=== PATIENT | male | born 1980 | race Caucasian/White ===

== ENCOUNTER 2019-03-08 17:59 | Emergency (ER) | payer MEDICARE, MEDICAID, SELFPAY ==
[2019-03-08 18:04] VITALS: BP 139/92; PULSE 87; RESP 18; TEMP 37.5; O2SAT 97
--- NOTE | 2019-03-08 18:08 | W.ED.GENAD ---
Discharge Plan Disposition Patient Disposition: HOME Condition: Improving Discharge Details Chief Complaint: Cellulitis Clinical Impression: Cellulitis and abscess of upper arm and forearm Primary Care Provider: Terri,Local ED Provider: Dionne Cordova Home Meds and New Rx's Prescriptions: New cephalexin [Keflex] 500 mg capsule 500 mg PO BID Qty: 12 RF: 0 sulfamethoxazole-trimethoprim [Bactrim DS] 800-160 mg tablet 2 tab PO BID Qty: 24 RF: 0 Continued olanzapine [Zyprexa] 20 MG tablet 20 mg PO HS RF: 0 sertraline [Zoloft] 50 MG tablet 75 mg PO DAILY Qty: 14 RF: 0 dextroamphetamine-amphetamine [Adderall] 20 MG tablet 30 mg PO BID RF: 0 methadone 10 MG/ML concentrate 60 mg PO DAILY RF: 0 methylprednisolone 4 MG tablets,dose pack 4 mg PO DIRECTED Qty: 1 RF: 0 Discharge Instructions Instructions: Cephalexin (By mouth), Sulfamethoxazole/Trimethoprim (By mouth), Cellulitis (ED) Additional Instructions: Keep wound covered. This will continue to drain. Incision will close on its own. Please take antibiotics as prescribed, even if symptoms improve, please take the entire course. You will need follow-up within the next 48 hours. I have asked her critical care nurse help facilitate this, please call them tomorrow to discuss follow-up appointment. If you are not able to be seen by primary care provider next 48 hours please return to the emergency department for recheck. Elevate as much as possible over the next 2 days, at this arm rest. If you develop fever/chills, the redness starts to spread outside of the skin finds you develop other new/worsening symptoms please seek care urgently once again. Follow-up with the tennis coach as directed Discharge Data Discharge Date/Time-TO BE ENTERED AT DEPARTURE: 03/08/19 19:57 Medical Decision Making Patient is a [id number] 39-year-old male presenting today with chief complaint of abscess to the ulnar side of the right forearm. He reports that over week ago he injected cocaine into the area. States that he noted abscess shortly thereafter. States that he was awaiting for this to drain itself did not seek treatment. Denies any fevers or chills. Reports that he attempted to open this last night and that since then the erythema has spread quite rapidly. On exam, he has a 3 cm raised, fluctuant area that is crusted over 4 central area of abscess. Erythema then spreads to the elbow and wrist. Is not completely circumferential. The area around the abscess is quite indurated. Patient appears nontoxic. Plan to I&D, discussed this with the patient. Will place on Keflex and Bactrim, pending wound culture. Abscess was I&D. Thick purulent discharge was expressed. Loculations were broken up, abscess was irrigated. Wound culture was sent. Patient tolerated this well. Patient given first dose of Keflex and Bactrim while here. Advised he avoid work for the next 2 days and try to elevate the arm as much as possible. Patient does not have primary care, nor does he have a contact phone number. He will contact our critical care nurse tomorrow hoping to have a phone number to establish at that point. Patient is to be reassessed in the next 48 hours. If we are unable to establish him with a primary care and that time, he will return to the emergency department for wound evaluation. He was given strict return precautions. life skills coach did come and speak with the patient who is very interested in abstaining from drugs. Area of cellulitis was demarcated with marker. All of his questions and concerns were addressed and he is in agreement this plan. HPI General Mode of arrival: ambulatory. Date/Time Provider Initiated Documentation: 03/08/19 18:07. Limitations to Documentation: no limitations. Information obtained by: patient and RN notes reviewed. History of Present Illness 39 year old M presents to the emergency department with the chief complaint of Right forearm abscess, described as moderate, Quality is described as burning, and is localized to the right and upper extremity. Patient reports no radiation. Patient started experiencing this week(s) (1) and it has been constant. No relieving factors improve symptom(s), Other factors that worsen symptoms (After an attempt at opening last night) . Patient notes no other symptoms. and rash (Erythema surrounding); denies chest pain, cough, fever/chills, nausea/vomiting and shortness of breath. Patient did receive the following treatments prior to arrival, none Related Data Home Medications Medication Instructions Recorded Confirmed olanzapine [Zyprexa] 20 mg PO HS 03/04/16 06/03/17 sertraline [Zoloft] 75 mg PO DAILY #14 tablet 03/04/16 06/03/17 dextroamphetamine-amphetamine 30 mg PO BID 06/03/17 06/03/17 [Adderall] methadone 60 mg PO DAILY 06/03/17 06/03/17 methylprednisolone 4 mg PO DIRECTED #1 packet 06/03/17 cephalexin [Keflex] 500 mg PO BID #12 cap 03/08/19 sulfamethoxazole-trimethoprim 2 tab PO BID #24 tab 03/08/19 [Bactrim DS] Previous Rx's Medication Instructions Recorded sertraline [Zoloft] 75 mg PO DAILY #14 tablet 03/04/16 methylprednisolone 4 mg PO DIRECTED #1 packet 06/03/17 cephalexin [Keflex] 500 mg PO BID #12 cap 03/08/19 sulfamethoxazole-trimethoprim 2 tab PO BID #24 tab 03/08/19 [Bactrim DS] Allergies Allergy/AdvReac Type Severity Reaction Status Date / Time Penicillins AdvReac Intermediate Hives Unverified 06/03/17 19:32 Review of Systems Constitutional Reports as per HPI, Denies chills, Denies fever(s), Denies headache(s) and Denies weakness ENT Denies headache(s) Cardiovascular Reports as per HPI and Denies chest pain Respiratory Reports as per HPI and Denies cough Musculoskeletal Reports as per HPI, Denies deformity, Denies joint swelling, Denies limited range of motion, Denies muscle weakness, Denies numbness and Denies tingling Integumentary/Breasts Reports as per HPI, Reports erythema, Reports skin pain, Reports skin swelling and Reports sores Neurologic Reports as per HPI, Denies headache(s), Denies numbness, Denies tingling, Denies paresthesias and Denies weakness [facility] Social History Smoking/Tobacco Use Status: Current every day Alcohol Intake: never Drug use: Occasionally Substance use type: marijuana Details: States he is on methadone Do you feel safe in your relationship?: Yes Exam Const General: cooperative, healthy appearing, comfortable, no acute distress, well developed and well groomed Nutritional Appearance: average body habitus and well nourished Orientation: alert and awake Resp Effort & Inspection: normal respiratory effort, able to speak in complete sentences and no respiratory distress Cardio Rate: regular rate Rhythm: regular rhythm Skin General skin exam: crusts (centrally over abscess), no ecchymosis, erythema, fluctuance (centrally 3cm abscess) and induration (surrounding abscess) Full body images: 1. area of erythema 2. area of abscess Neuro General: alert and awake Cognition: normal cognition Speech: speech normal Gait: normal gait Motor: muscle tone normal throughout Sensory Exam: no sensory deficits noted Extrem General: full ROM, normal capillary refill and no joint enlargement Right upper extremity: full ROM, normal capillary refill and no joint enlargement; abnormal to inspection (skin changes as above) Psych Appearance: grossly normal and well kempt Mental Status: mental status grossly normal Speech and Movement: speech and movement normal Procedures Abscess I/D Site: Upper Extremity Side (if applicable): Right Sedation/analgesia: None Local Anesthetic: Lidocaine 1% Amount of anesthesia used (mL): 4 Technique: Other (15 blade) Amount of fluid expressed (mL): 5 Irrigation: Yes Packing used?: None
--- NOTE | 2019-03-08 18:25 | ED.GENADUL_ITS ---
Discharge Plan Disposition Patient Disposition: HOME Condition: Improving Discharge Details Chief Complaint: Cellulitis Clinical Impression: Cellulitis and abscess of upper arm and forearm Primary Care Provider: Terri,Local ED Provider: Dionne Cordova Home Meds and New Rx's Prescriptions: New cephalexin [Keflex] 500 mg capsule 500 mg PO BID Qty: 12 RF: 0 sulfamethoxazole-trimethoprim [Bactrim DS] 800-160 mg tablet 2 tab PO BID Qty: 24 RF: 0 Continued olanzapine [Zyprexa] 20 MG tablet 20 mg PO HS RF: 0 sertraline [Zoloft] 50 MG tablet 75 mg PO DAILY Qty: 14 RF: 0 dextroamphetamine-amphetamine [Adderall] 20 MG tablet 30 mg PO BID RF: 0 methadone 10 MG/ML concentrate 60 mg PO DAILY RF: 0 methylprednisolone 4 MG tablets,dose pack 4 mg PO DIRECTED Qty: 1 RF: 0 Discharge Instructions Instructions: Cephalexin (By mouth), Sulfamethoxazole/Trimethoprim (By mouth), Cellulitis (ED) Additional Instructions: Keep wound covered. This will continue to drain. Incision will close on its own. Please take antibiotics as prescribed, even if symptoms improve, please take the entire course. You will need follow-up within the next 48 hours. I have asked her post anesthesia care unit nurse help facilitate this, please call them tomorrow to discuss follow-up appointment. If you are not able to be seen by primary care provider next 48 hours please return to the emergency department for recheck. Elevate as much as possible over the next 2 days, at this arm rest. If you develop fever/chills, the redness starts to spread outside of the skin finds you develop other new/worsening symptoms please seek care urgently once ag ain. Follow-up with the recovery room rn as directed Discharge Data Discharge Date/Time-TO BE ENTERED AT DEPARTURE: 03/08/19 19:57 Medical Decision Making Patient is a [id number] 39-year-old male presenting today with chief c omplaint of abscess to the ulnar side of the right forearm. He reports that over week ago he injected cocaine into the area. States that he noted abscess shortly thereafter. States that he was awaiting for this to drain itself did not seek treatment. Denies any fevers or chills. Reports that he attempted to open this last night and that since then the erythema has spread quite rapidly. On exam, he has a 3 cm raised, fluctuant area that is crusted over 4 central area of abscess. Erythema then spreads to the elbow and wrist. Is not completely circumferential. The area around the abscess is quite indurated. Patient appears nontoxic. Plan to I&D, discussed this with the patient. Will place on Keflex and Bactrim, pending wound culture. Abscess was I&D. Thick purulent discharge was expressed. Loculations were broken up, abscess was irrigated. Wound culture was sent. Patient tolerated this well. Patient given first dose of Keflex and Bactrim while here. Advised he avoid work for the next 2 days and try to elevate the arm as much as possible. Patient does not have primary care, nor does he have a contact phone number. He will contact our post anesthesia care unit nurse tomorrow hoping to have a phone number to establish at that point. Patient is to be reassessed in the next 48 hours. If we are unable to establish him with a primary care and that time, he will return to the emergency department for wound evaluation. He was given strict return precautions. swimming coach did come and speak with the patient who is very interested in abstaining from drugs. Area of cellulitis was demarcated with marker. All of his questions and concerns were addressed and he is in agreement this plan. HPI General Mode of arrival: ambulatory . Date/Time Provider Initiated Documentation: 03/08/19 18:07 . Limitations to Documentation: no limitations . Information obtained by: patient and RN notes reviewed . History of Present Illness 39 year old M presents to the emergency department with the chief complaint of Right forearm abscess, described as moderate, Quality is described as burning, and is localized to the right and upper extremity. Patient reports no radiation. Patient started experiencing this week(s) (1) and it has been constant. No relieving factors improve symptom(s), Other factors that worsen symptoms (After an attempt at opening last night) . Patient notes no other symptoms. and rash (Erythema surrounding); denies chest pain, cough, fever/chills, nausea/vomiting and shortness of breath. Patient did receive the following treatments prior to arrival, none Related Data Home Medications Medication Instructions Recorded Confirmed olanzapine [Zyprexa] 20 mg PO HS 03/04/16 06/03/17 sertraline [Zoloft] 75 mg PO DAILY #14 tablet 03/04/16 06/03/17 dextroamphetamine-amphetamine 30 mg PO BID 06/03/17 06/03/17 [Adderall] methadone 60 mg PO DAILY 06/03/17 06/03/17 methylprednisolone 4 mg PO DIRECTED #1 packet 06/03/17 cephalexin [Keflex] 500 mg PO BID #12 cap 03/08/19 sulfamethoxazole-trimethoprim 2 tab PO BID #24 tab 03/08/19 [Bactrim DS] Previous Rx's Medication Instructions Recorded sertraline [Zoloft] 75 mg PO DAILY #14 tablet 03/04/16 methylprednisolone 4 mg PO DIRECTED #1 packet 06/03/17 cephalexin [Keflex] 500 mg PO BID #12 cap 03/08/19 sulfamethoxazole-trimethoprim 2 tab PO BID #24 tab 03/08/19 [Bactrim DS] Allergies Allergy/AdvReac Type Severity Reaction Status Date / Time Penicillins AdvReac Intermediate Hives Unverified 06/03/17 19:32 Review of Systems Constitutional Reports as per HPI, Denies chills, Denies fever(s), Denies headache(s) and Denies weakness ENT Denies headache(s) Cardiovascular Reports as per HPI and Denies chest pain Respiratory Reports as per HPI and Denies cough Musculoskeletal Reports as per HPI, Denies deformity, Denies joint swelling, Denies limited range of motion, Denies muscle weakness, Denies numbness and Denies tingling Integumentary/Breasts Reports as per HPI, Reports erythema, Reports skin pain, Reports skin swelling and Reports sores Neurologic Reports as per HPI, Denies headache(s), Denies numbness, Denies tingling, Denies paresthesias and Denies weakness [facility] Social History Smoking/Tobacco Use Status: Current every day Alcohol Intake: never Drug use: Occasionally Substance use type: marijuana Details: States he is on methadone Do you feel safe in your relationship?: Yes Exam Const General: cooperative, healthy appearing, comfortable, no acute distress, well developed and well groomed Nutritional Appearance: average body habitus and well nourished Orientation: alert and awake Resp Effort & Inspection: normal respiratory effort, able to speak in complete sentences and no respiratory distress Cardio Rate: regular rate Rhythm: regular rhythm Skin General skin exam: crusts (centrally over abscess), no ecchymosis, erythema, fluctuance (centrally 3cm abscess) and induration (surrounding abscess) Full body images: 1. area of erythema 2. area of abscess Neuro General: alert and awake Cognition: normal cognition Speech: speech normal Gait: normal gait Motor: muscle tone normal throughout Sensory Exam: no sensory deficits noted Extrem General: full ROM, normal capillary refill and no joint enlargement Right upper extremity: full ROM, normal capillary refill and no joint enlargement; abnormal to inspection (skin changes as above) Psych Appearance: grossly normal and well kempt Mental Status: mental status grossly normal Speech and Movement: speech and movement normal Procedures Abscess I/D Site: Upper Extremity Side (if applicable): Right Sedation/analgesia: None Local Anesthetic: Lidocaine 1% Amount of anesthesia used (mL): 4 Technique: Other (15 blade) Amount of fluid expressed (mL): 5 Irrigation: Yes Packing used?: None
[2019-03-08] MEDS: Cephalexin 500 MG CAP PO ×2 (18:27→19:54)
[2019-03-08] MEDS: Sulfameth/Trimeth DS TAB 2 TAB PO ×2 (18:27→19:54)
--- NOTE | 2019-03-09 09:55 | CMPROGNOTE_ITS ---
Care Management Progress Note 03/09-Dionne ANDRADE requested assistance with a PCP (Does not have one, Joselyn construction inspector) f/u by Wednesday for abscess/cellulitis. Tried calling patient. Phone number has been disconnected. His contacts phone number does not answer and messages states phone does not take messages. Referral faxed to [facility]. Dionne ANDRADE notified.
== END 2019-03-08 19:57 | disposition home or self-care (01) ==
PROVIDERS: Emergency Provider Physician Assistant
DX: L02.413 Cutaneous abscess of right upper limb (principal); L03.113 Cellulitis of right upper limb; B95.61 Methicillin susceptible Staphylococcus aureus infection as the cause of diseases classified elsewhere
CPT/HCPCS: 10060; 87077; 90471; 87070; 87186; 87205; L4361

== ENCOUNTER 2019-11-15 11:11 | Emergency (ER) | payer MEDICARE, MEDICAID, SELFPAY ==
[2019-11-15 11:16] VITALS: BP 132/82; PULSE 72; TEMP 36.4; O2SAT 99
--- NOTE | 2019-11-15 11:33 | W.ED.GENAD ---
Discharge Plan Disposition Patient Disposition: HOME Condition: Stable Discharge Details Chief Complaint: DentalOral Clinical Impression: Abscess, dental Primary Care Provider: None,None ED Provider: Amaya Andrews Home Meds and New Rx's Prescriptions: New clindamycin HCl 300 mg capsule 300 mg PO TID Qty: 30 RF: 0 No Action olanzapine [Zyprexa] 20 MG tablet 20 mg PO HS RF: 0 dextroamphetamine-amphetamine [Adderall] 20 MG tablet 30 mg PO BID RF: 0 methadone 10 MG/ML concentrate 125 mg PO DAILY RF: 0 Discharge Instructions Instructions: Dental Abscess (ED) Additional Instructions: Ice to the cheek for swelling. Keep head of bed elevated for symptomatic relief. Warm salt water rinses Use Motrin or Tylenol [id number] for relief. Use antibiotic as prescribed. Follow-up with dentist promptly as discussed. You were put on child care center administrator list to arrange for outpatient primary care doctor as discussed. Return for any worsening, alarming symptoms, difficulty eating, drinking, increased facial swelling or if needed sooner Medical Decision Making Is a pleasant 39-year-old gentleman presenting to the emergency room for complaints of dental pain which began this morning. Patient does have an area of fullness noted along the gumline superior to tooth #13 and 14. Patient does have previous crowns in place. No obvious dental fractures present. No fluctuation. Patient prefers antibiotic treatment at this time. Conservative treatments also discussed. Patient reports penicillin allergy therefore clindamycin will be prescribed. Risk factors of C. difficile associated diarrhea discussed regarding clindamycin use. Patient reports his understanding. The patient was stable and requested discharge. Prior to discharge, my usual and customary return precautions were reviewed with the patient - this included follow-up instructions and reasons to return to the Emergency Department if conditions worsens, does not improve as expected, or other new concerns arise. Patient does report he does not have a PCP locally and is requesting assistance finding PCP. Patient plans to follow-up with dentist. HPI General Date/Time Provider Initiated Documentation: 11/15/19 11:14. HPI Narrative: This is a 39-year-old patient presenting for complaints of upper dental pain which began this morning. Patient denies any obvious new injury or trauma. Area of dental pain noted at previously crown teeth. Patient does plan to call dentist today but is concerned with the necessity for antibiotics. Denies any fevers, chills, nausea, vomiting. Eating and drinking without difficulty. No voice change or trismus. Denies any other concerns or complaints. No facial pain or swelling. No associated facial rashes or skin changes. Related Data Home Medications Medication Instructions Recorded Confirmed olanzapine [Zyprexa] 20 mg PO HS 03/04/16 11/15/19 dextroamphetamine-amphetamine 30 mg PO BID 06/03/17 11/15/19 [Adderall] methadone 125 mg PO DAILY 06/03/17 11/15/19 clindamycin HCl 300 mg PO TID #30 cap 11/15/19 Previous Rx's Medication Instructions Recorded clindamycin HCl 300 mg PO TID #30 cap 11/15/19 Allergies Allergy/AdvReac Type Severity Reaction Status Date / Time Penicillins AdvReac Intermediate Hives Unverified 11/15/19 11:18 General Stated Complaint: DentalOral JACQUI: 4 Review of Systems All systems reviewed & are unremarkable except as noted in HPI and below Constitutional Constitutional: Denies chills, Denies fatigue, Denies fever(s), Denies headache(s) and Denies malaise ENT Ears, Nose, Mouth, and Throat: Reports dental pain, Denies dysphagia, Denies otalgia, Denies headache(s), Denies nasal congestion and Denies sore throat Gastrointestinal Gastrointestinal: Denies dysphagia Integumentary/Breasts Skin/Breast: Denies erythema and Denies rash Neurologic Neurologic: Denies headache(s) Endocrine Endocrine: Denies fatigue [facility] Medical History Cannabis dependence, uncomplicated (Acute) Opioid dependence, uncomplicated (Acute) Severe episode of recurrent major depressive disorder, with psychotic features (Acute) Social History Smoking/Tobacco Use Status: Current every day Tobacco Type: cigarettes Alcohol Intake: never Drug use: Occasionally Substance use type: marijuana Details: States he is on methadone Do you feel safe at home: Yes Do you feel safe in your relationship?: Yes Exam Narrative Exam Narrative: CONST: Healthy appearing patient, in no acute distress. Well hydrated. Alert and oriented. HENMT: Head nomocephalic, normal to inspection. Atraumatic. Hearing grossly normal. TMs appear normal bilaterally, no pharyngeal erythema. There is a very mild area of fullness noted above #13 and 14 on the right. No obvious fluctuance noted. Mild tenderness with palpation. No drainage present. EYES: General normal appearance. Alignment normal. Eyelids normal. Conjunctiva normal. NECK: Normal visual inspection. FROM. Trachea midline. No Midline tenderness. No cervical lymphadenopathy present SKIN: Normal. Dry. No rashes. No facial cellulitis NEURO: Alert and awake. Speech clear. PSYCH: Normal affect. Cooperative. Course Vital Signs Vital signs: Vital Signs Temperature 36.4 C L 11/15/19 11:16 Pulse 72 11/15/19 11:16 Blood Pressure 132/82 11/15/19 11:16 Pulse Oximetry 99 11/15/19 11:16 Temperature 36.4 C L 11/15/19 11:16 Temperature Source Temporal Artery Scan 11/15/19 11:16 Pulse 72 11/15/19 11:16 Respiratory Effort Non-Labored 11/15/19 11:17 Blood Pressure 132/82 11/15/19 11:16 Blood Pressure Position Sitting 11/15/19 11:16 Pulse Oximetry 99 11/15/19 11:16 Oxygen Delivery Method Room Air 11/15/19 11:16 Oxygen Flow Rate 0 11/15/19 11:16 Pain Level 6 11/15/19 11:20
== END 2019-11-15 11:49 | disposition home or self-care (01) ==
LOC: ER 11:44
PROVIDERS: Emergency Provider Physician Assistant
DX: R68.84 Jaw pain (principal); K04.7 Periapical abscess without sinus
CPT/HCPCS: 99283

== ENCOUNTER 2020-07-11 08:45 | Emergency (ER) | payer MEDICARE, MEDICAID, SELFPAY ==
[2020-07-11 08:50] VITALS: BP 107/76; PULSE 110; RESP 20; TEMP 37; O2SAT 100
--- NOTE | 2020-07-11 09:07 | ED.GENADUL_ITS ---
Discharge Plan Disposition Patient Disposition: HOME Condition: Stable Discharge Details Clinical Impression: Burn of right thumb Primary Care Provider: Raissa Beckham ED Provider: Pura Evans Home Meds and New Rx's Prescriptions: New clindamycin HCl 300 mg capsule 300 mg PO BID 7 Days Qty: 14 RF: 0 No Action sertraline 100 mg tablet 150 mg PO DAILY RF: 0 olanzapine [Zyprexa] 20 MG tablet 20 mg PO HS RF: 0 methadone 10 MG/ML concentrate 125 mg PO DAILY RF: 0 methylphenidate HCl 20 mg tablet 20 mg PO TID RF: 0 Discharge Instructions Instructions: Superficial Burn (ED), Acute Wound Care (ED) Additional Instructions: Follow up with primary care provider in 3-5 days. Return to ED sooner if any worsening or concerns. Increase oral fluids. Please take Tylenol or Ibuprofen with food every 4-6 hours as needed for pain and swelling. Take antibiotics as prescribed. Return for any red streaks going up your arm, fever or any concerns. Referrals: Raissa Beckham, [employer] [Primary Care Provider] - Medical Decision Making Patient was given clindamycin, wound care and prescription discussed home care and strict return instructions, verbalized understanding. HPI General Mode of arrival: ambulatory . Date/Time Provider Initiated Documentation: 07/11/20 08:47 . Limitations to Documentation: no limitations . Information obtained by: patient . HPI Narrative: 40 year old male presents with right thumb burn which occurred approximately 1 week ago. He presents today with increased fatigue and pain. He presents from Methadone clinic, he denies fever or chills. He does have a white second-degree burn noted to the lateral aspect of his right thumb on the palmar side. No surrounding erythema or swe lling noted. He reports pain 6 out of 10. He has a past medical history of depression, schizophrenia, ADHD and chronic back pain. Related Data Home Medications Medication Instructions Recorded Confirmed olanzapine [Zyprexa] 20 mg PO HS 03/04/16 07/11/20 methadone 125 mg PO DAILY 06/03/17 07/11/20 sertraline 100 mg tablet 150 mg PO DAILY tab 12/19/19 07/11/20 clindamycin HCl 300 mg PO BID 7 Days #14 cap 07/11/20 methylphenidate HCl 20 mg PO TID 07/11/20 07/11/20 Previous Rx's Medication Instructions Recorded clindamycin HCl 300 mg PO BID 7 Days #14 cap 07/11/20 Allergies Allergy/AdvReac Type Severity Reaction Status Date / Time Penicillins AdvReac Intermediate Hives Unverified 07/11/20 08:53 General Stated Complaint: Burn JACQUI: 4 Review of Systems All systems reviewed & are unremarkable except as noted in HPI and below Integumentary/Breasts Skin/Breast: Reports furuncle (Right thumb) [facility] Medical History Cannabis dependence, uncomplicated Opioid dependence, uncomplicated Severe episode of recurrent major depressive disorder, with psychotic features Family History Mother , age 63 Lupus Father No problems noted. Sister No problems noted. Brother No problems noted. Brother No problems noted. Maternal Grandfather No problems noted. Paternal Grandfather No problems noted. Maternal Grandmother No problems noted. Paternal Grandmother Diabetes Social History Smoking/Tobacco Use Status: Current every day Tobacco Type: cigarettes Quit status: considering quitting Alcohol Intake: never Drug use: Current Sobriety Details: States he is on methadone Caregiver/Support person: No Household members: other Details: roommate Communication Needs: None Pets and animals: Yes Pets and animals: dog(s) Sexually active: Yes Do you think of yourself as: straight/heterosexual Current gender identity: female What is your relationship status?: refused to answer How often do you talk on the phone with friends or family?: three or more times per week How often do you get together with friends or relatives?: twice per week How often do you attend sabianism or holiness services?: 4 or more times per year Do you belong to any clubs or organized social groups?: no Panel score (0-1 are the most socially isolated patients): 2 What type of physical activity do you participate in: walking Duration: > 90 minutes/day Frequency: 1-2 times per week Kavitha/Restorationism: Buddhist Special kavitha needs: No Seatbelt use: always Drive intox or ride w/intox local hazmat driver: No Do you feel safe at home: Yes Do you feel safe in your relationship?: Yes Exam Narrative Exam Narrative: Constitutional: Alert and oriented x3. Appears stated age. Normal body habitus. Head: Normocephalic, no trauma. Eyes: Pupils PERRLA, Red reflex noted, EOM's intact. Eyelids symmetrical without lesions, discharge, or swelling. ENT: Bilateral TM's WNL, External ear normal to inspection, no mastoid TTP, swelling, or erythema, Nasal turbinates WNL, no nasal discharge. Normal dentition, Posterior pharynx WNL, no exudate. Chest: RRR, Normal S1, S2, distal pulses intact. Resp: Lungs clear to auscultation bilaterally, no wheezes, rales, or rhonchi. Musculoskeletal: Normal gait, 5/5 strength to all four extremities. Skin: Capillary refill less than 2 sec. has a small second-degree burn noted to the palmar pad of his right thumb. His hands are dirty. Radial pulses intact bilaterally. He does have some erythema noted to his medial aspect of his wrist. Full range of motion. Neurologic: Cranial nerves II-XII intact. Alert and oriented x 3. DTR's intact. Hematologic/Lymphatic: No ecchymosis, no lymphadenopathy. Course Vital Signs Vital signs: Vital Signs Temperature 37.0 C 07/11/20 08:50 Pulse 110 H 07/11/20 08:50 Respiratory Rate 20 07/11/20 08:50 Blood Pressure 107/76 07/11/20 08:50 Pulse Oximetry 100 07/11/20 08:50 Temperature 37.0 C 07/11/20 08:50 Temperature Source Oral 07/11/20 08:50 Pulse 110 H 07/11/20 08:50 Respiratory Rate 20 07/11/20 08:50 Respiratory Effort Non-Labored 07/11/20 08:55 Blood Pressure 107/76 07/11/20 08:50 Blood Pressure Position Sitting 07/11/20 08:50 Pulse Oximetry 100 07/11/20 08:50 Oxygen Delivery Method Room Air 07/11/20 08:50 Oxygen Flow Rate 0 07/11/20 08:50 Pain Level 5 07/11/20 08:50
[2020-07-11] MEDS: Ibuprofen 800 MG TAB PO (09:24)
[2020-07-11] MEDS: Clindamycin 300 MG CAP PO (09:24)
== END 2020-07-11 09:29 | disposition home or self-care (01) ==
PROVIDERS: Emergency Provider Registered Nurse Emergency; PCP Nurse Practitioner
DX: T23.211A Burn of second degree of right thumb (nail), initial encounter (principal); X17.XXXA Contact with hot engines, machinery and tools, initial encounter
CPT/HCPCS: 16020

== ENCOUNTER 2023-03-19 10:40 | Outpatient (CLI) | payer MEDICARE, MEDICAID, SELFPAY ==
--- NOTE | 2023-03-19 10:30 | RT.EKG_ITS ---
APPROVED REPORT Exam: Resting ECG Reason for Exam: Baseline Patient Location: O HR:70 bpm ECG Measurements Heart Rate 70 AXIS PA 158 P 63 QRSd 100 QRS 1 QT 403 T 43 QTc 435 Conclusion Sinus rhythm...normal P axis, V-rate 50- 99 Normal Electrocardiogram
== END 2023-03-19 10:41 | disposition home or self-care (01) ==
LOC: DI.KIM 10:42
PROVIDERS: PCP Family Medicine; Visit Provider Family Medicine
DX: Z51.81 Encounter for therapeutic drug level monitoring (principal); Z79.899 Other long term (current) drug therapy
CPT/HCPCS: 93010

== ENCOUNTER 2024-11-15 15:17 | Emergency (ER) | payer MEDICARE, MEDICAID, SELFPAY ==
[2024-11-15 15:20] VITALS: BP 122/87; PULSE 100; RESP 16; TEMP 36.6; O2SAT 98
--- OUTSIDE RECORDS SUMMARY | 2024-11-15 15:42 | XMS_ITS | Clinical Summary ---
[place] [address] Care Team Providers Care Lawyer Name Role Phone Unavailable Primary Care Provider Unavailabl e Social History Tobacco Use Types Packs/Day Years Used Date Smoking Tobacco: Never Assessed Sex and Gender Information Value Date Recorded Sex Assigned at Not on file Gender Identity Not on file Sexual Orientation Not on file Plan of Treatment Health Maintenance Due Date Last Done Comments HIV screen 1999 Hepatitis C Screening 1999 Lipid Screening 1999 Hepatitis B vaccine (0-59 yrs) (1) 01/22/2000 Tetanus/Diphtheria/Pertussis Vaccines (1 - Tdap) 01/21 Covid-19 Vaccine (2023- season) 2024 Influenza (Flu) vaccine (1 o f 1 - Influenza standard series) 06/11/2024
--- OUTSIDE RECORDS SUMMARY | 2024-11-15 15:42 | XMS_ITS | Encounter Summary ---
Author Organization [facility] Address [facility] [place] [address] Care Team Providers Care Corporate Job Titles Name Role Phone Unavailable Primary Care Provider Unavailabl e Encounter Details Date Type Department Care Team (Late st Contact Info) Description 05/21/2024 Interpretation Only [facility] [address] [place] [address] Prerna Joya, BRUSHER MACHINE [address] [place] [address] Social History Tobacco Use Types Packs/Day Years Used Date Smoking Tobacco: Never Assessed Sex and Gender Information Value Date Recorded Sex Assigned at Not on file Gender Identity Not on file Sexual Orientation Not on file documented as of this encounter Plan of Treatment Not on file documented as of this encounter Procedures Procedure Name Priority Date/Time Associated Diagnosis Comments XR FOOT MIN 3 VIEWS RIGHT STAT 05/21/2024 7:55 PM EDT documented in this encounter Results * XR Foot Min 3 views Right (Generic) (05/21/2024 7:55 PM EDT) PT CLASS E RAD ADMITDTTM [id number] RAD PT [facility] INFO [id number]^KYARA^C HELSEA^L RAD EXAM DESC [id number]^XR FOOT 3V RT^RIS RAD WORKSTATION ID [id number] RAD Anatomical Region Laterality Modality Foot Right Radiographic Dixie ging Impressions 05/21/2024 8:22 PM EDT 1. ??Nondisplaced fracture of the great toe distal phalanx. 2. ??Soft tissue swelling over the dorsal foot. Preliminary report signed by: Guillermina Schofield MD at 05/21/2024 8:17 PM Thank you for letting us participate in the care of this patient. ??If you are a health care provider and have any questions regarding this report, please contact the number below. ??For patients who have questions please contact the health caretaker grounds that requested your imaging first. ? Narrative 05/21/2024 8:22 PM EDT EXAMINATION: XR FOOT 3V RT CLINICAL HISTORY: ??Reason for Extrem: ??Swelling ??Add'l Info: TECHNIQUE: AP, lateral, and oblique ??views RIGHT foot, 3 images COMPARISON: None FINDINGS: Nondisplaced oblique intra-articular fracture of the lateral base of the distal phalanx, great toe. Mild narrowing of the interphalangeal joint space of the great toe with subchondral cyst. Otherwise the joint spaces of the foot are maintained normal alignment of the joints, including the Lisfranc joint. Mild soft tissue swelling over the dorsal foot. Procedure Note Delbert Rogel MD - 05/21/2024 EXAMINATION: XR FOOT 3V RT CLINICAL HISTORY: Reason for Extrem: Swelling Add'l Info: TECHNIQUE: AP, lateral, and oblique views RIGHT foot, 3 images COMPARISON: None FINDINGS: Nondisplaced oblique intra-articular fracture of the lateral base of thedistal phalanx, great toe. Mild narrowing of the interphalangeal joint space of the great toe with subchondral cyst. Otherwise the joint spaces of the foot are maintainednormal alignment of the joints, including the Lisfranc joint. Mild soft tissue swelling over the dorsal foot. IMPRESSION 1. Nondisplaced fracture of the great toe distal phalanx. 2. Soft tissue swelling over the dorsal foot. Preliminary report signed by: Guillermina Schofield MD at 05/21/2024 8:17 PM Thank you for letting us participate in the care of this patient. If youare a health care provider and have any questions regarding this report,please contact the number below. For patients who have questions please contactthe health caretaker grounds that requested your imaging first. Prerna Joya APRN IMG DX ORDERABLES documented in this encounter Visit Diagnoses Not on filedocumented in this encounter
--- NOTE | 2024-11-15 17:38 | W.ED.GENAD ---
Discharge Plan Disposition Patient Disposition: Home Condition: Stable Discharge Details Clinical Impression: Methadone maintenance therapy patient Primary Care Provider: Tim Ponce ED Provider: Frank Chopra Home Meds and New Rx's Prescriptions: Continued methylphenidate HCl 20 mg tablet 20 mg PO TID MDD 60 mg Qty: 84 0RF olanzapine [Zyprexa] 20 mg tablet 20 mg PO HS Qty: 90 3RF methadone 10 MG/ML concentrate 152 mg PO DAILY Discharge Instructions Instructions: Methadone, Substance Misuse Treatment Additional Instructions: You were seen in the emergency department for your request for your daily methadone dose, you must closing at the [facility] to 5 minutes. We are happy to provide this. Please return for any emergent concerns. Referrals: Tim Ponce DO [Primary Care Provider] - Discharge Data Discharge Date/Time-TO BE ENTERED AT DEPARTURE: 11/15/24 17:58 HPI General Date/Time Provider Initiated Documentation: 11/15/24 15:22. HPI Narrative: 44 year-old male presents to ED today by POV/ambulating with a chief complaint of request for methadone dose- he missed his appointment at [facility] with onset today. Quality described as feels mildly nauseous, no radiation to chest pain, shortness of breath, vomiting, cough, other medical complaints. Severity is described as mild. Palliating factors include nothing specific attempted. Provoking factors include nothing specific. Patient not anticoagulated. Related Data Home Medications ?Medication ?Instructions ?Recorded ?Confirmed methadone 10 mg/mL oral concentrate 152 mg PO DAILY 06/03/17 11/15/24 olanzapine 20 mg tablet (Zyprexa) 20 mg PO HS #90 tabs 04/20/24 11/15/24 methylphenidate HCl 20 mg tablet 20 mg PO TID #84 tabs 10/05/24 11/15/24 Previous Rx's ?Medication ?Instructions ?Recorded olanzapine 20 mg tablet (Zyprexa) 20 mg PO HS #90 tabs 04/20/24 methylphenidate HCl 20 mg tablet 20 mg PO TID #84 tabs 10/05/24 Allergies Allergy/AdvReac Type Severity Reaction Status Date / Time Penicillins AdvReac Intermediate Hives Verified 11/15/24 15:23 General Stated Complaint: DrugWithdr/MAT JACQUI: 4 Review of Systems All systems reviewed & are unremarkable except as noted in HPI and below Exam Narrative Exam Narrative: GENERAL APPEARANCE: Well-nourished, non-toxic, awake and alert, atraumatic, no acute distress. SKIN: Warm, pink, dry, intact, without rashes/lesions/ulcerations. HEAD: Normocephalic, atraumatic, normal hair distribution for gender/age. EYES: Normal conjunctiva, no exudates on lids/lashes. ENT: Nares patent, no circumoral cyanosis, no facial swelling NECK: Supple, trachea midline, painless cervical ROM. LUNGS/CHEST: Non-labored respirations, normal A/P diameter, symmetrical expansion, no chest wall deformity HEART (CV/PV): No peripheral edema, no JVD. ABDOMEN: Soft, non-distended, no guarding. MSK: Normal ROM, no swelling/deformity to bilateral UEs or LEs, moving all extremities without weakness, no cyanosis, spine midline without tenderness, normal curvature. NEURO: Mental Status AAOx4 - alert to person, place, time, events No facial droop, no forehead involvement. Motor: No focal weakness - strength 5/5 in bilateral UEs and LEs, proximal and distal, symmetric. Sensory: sensation intact to light touch globally. Gait normal: patient ambulated without ataxia into ED room. PSYCH: euthymic, cooperative, pleasant, appropriate speech Course Vital Signs Vital signs: Vital Signs Temperature 36.6 C 11/15/24 15:20 Pulse 100 H 11/15/24 15:20 Respiratory Rate 16 11/15/24 15:20 Blood Pressure 122/87 11/15/24 15:20 Pulse Oximetry 98 11/15/24 15:20 Temperature 36.6 C 11/15/24 15:20 Pulse 100 H 11/15/24 15:20 Respiratory Rate 16 11/15/24 15:20 Blood Pressure 122/87 11/15/24 15:20 Pulse Oximetry 98 11/15/24 15:20 Pain Level 0 11/15/24 15:20 Medical Decision Making This dictation utilizes [id number] dictation software and may contain unedited grammatical errors. 44 year-old male presents to ED today by POV/ambulating with a chief complaint of request for methadone dose- he missed his appointment at [facility] with onset today. Quality described as feels mildly nauseous, no radiation to chest pain, shortness of breath, vomiting, cough, other medical complaints. Severity is described as mild. Palliating factors include nothing specific attempted. Provoking factors include nothing specific. Patients' medical history: opiate addiction. Family and social history: denies IVDU, denies ETOH. Pertinent exam findings / vital signs include benign cardiopulmonary status, benign abdomen, nontoxic. Differential / pathologies of concern include medication withdrawal. Diagnostic studies of: -none. Interventions of: -provided QD dose of methadone. ED Course/Assessment/Plan: 44-year-old male presents after he missed his appointment at [facility] today for his daily dose of methadone, 8 652 mg/day he was given 1 dose and recommend to follow-up outpatient, no other medical complaints. Findings not consistent with medical complaint, severe withdrawal. Disposition of Methadone Maintenance Therapy Patient. Patient verbalized understanding of the plan and return to ED criteria and engaged in shared decision making. Medical Records Medical records reviewed: Yes I reviewed the patient's medical records. Quality:SDOH Health Related Social Needs: No Data to Display PFSH All Active Problems (Updated 11/15/24 @ 17:39 by RAYMOND Karimi) Methadone maintenance therapy patient (Acute) ADD (attention deficit disorder) (Acute) Tobacco dependence (Acute) Depression (Chronic) Cannabis dependence, uncomplicated (Acute) Opioid dependence, uncomplicated (Acute) Medical History Cannabis dependence, uncomplicated Opioid dependence, uncomplicated Severe episode of recurrent major depressive disorder, with psychotic features Family History Mother , age 63 Lupus Father No problems noted. Sister No problems noted. Brother No problems noted. Brother No problems noted. Maternal Grandfather No problems noted. Paternal Grandfather No problems noted. Maternal Grandmother No problems noted. Paternal Grandmother Diabetes Social History (Updated 03/11/23 @ 14:42 by Gwendolyn Mcdaniel RN, RN) Smoking/Tobacco Use Status: Current every day Tobacco Type: cigarettes Tobacco: How many years used: 10 Quit status: considering quitting Smoking risk assessment performed?: Yes Alcohol Intake: never Drug use: Current Sobriety Substance use type: does not use Details: States he is on methadone Caregiver/Support person: No Household members: family and other Details: roommate Housing: house Number of Children: 0 Communication Needs: None Do you need help understanding health information?: Never Pets and animals: No Sexually active: Yes Do you think of yourself as: straight/heterosexual Current gender identity: male What is your relationship status?: refused to answer How often do you talk on the phone with friends or family?: three or more times per week How often do you get together with friends or relatives?: once per week How often do you attend jehovah's witness or latter-day services?: 4 or more times per year Do you belong to any clubs or organized social groups?: no Panel score (0-1 are the most socially isolated patients): 2 What type of physical activity do you participate in: walking Duration: > 90 minutes/day Frequency: daily Kavitha/Anglican: Sikh Special kavitha needs: No Seatbelt use: always Helmet use: Yes Drive intox or ride w/intox feeder driver: No Do you feel safe at home: Yes Do you feel safe in your relationship?: Yes
[2024-11-15] MEDS: Methadone Liquid 10 MG/ML 152 MG PO (17:54)
[2024-11-15 17:58] VITALS: BP 124/74; PULSE 74; RESP 16; O2SAT 98
== END 2024-11-15 17:58 | disposition home or self-care (01) ==
PROVIDERS: Emergency Provider Physician Assistant; PCP Family Medicine
DX: F11.20 Opioid dependence, uncomplicated (principal); F17.210 Nicotine dependence, cigarettes, uncomplicated
CPT/HCPCS: 99283

== ENCOUNTER 2025-06-07 09:14 | Outpatient (CLI) | payer MEDICARE, MEDICAID, SELFPAY ==
--- NOTE | 2025-06-07 09:00 | RT.EKG_ITS ---
APPROVED REPORT Exam: Resting ECG Reason for Exam: Medication management Patient Location: O HR:64 bpm ECG Measurements Heart Rate 64 AXIS RI 151 P -49 QRSd 103 QRS -8 QT 421 T 33 QTc 435 Conclusion Sinus or ectopic atrial rhythm...P axis (-45,135) Abnormal R-wave progression, early transition...QRS area>0 in V2 Otherwise normal ECG
== END 2025-06-07 09:15 | disposition home or self-care (01) ==
LOC: DI.KIM 09:15
PROVIDERS: PCP Family Medicine; Visit Provider Family Medicine
DX: Z79.899 Other long term (current) drug therapy (principal)
CPT/HCPCS: 93010